=== PATIENT | male | born 1995 | race Two or more races ===

== ENCOUNTER 2017-07-13 03:21 | Emergency (ER) | payer SELFPAY ==
[~2017-07-13] VITALS: Ht 175.3 cm; Wt 86.0 kg
[2017-07-13] MEDS ORDERED: LIDOCAINE 1%, 20ML ONE (03:58)
[2017-07-13] MEDS ORDERED: LIDOCAINE 1%, 20ML SQ ONE (04:00)
[2017-07-13] MEDS ORDERED: DIPH,PERTUSS(ACELL),TET VAC/PF 0.5 ML IM-VACC ONE ×2 (04:37→05:00)
[2017-07-13 04:46] VITALS: BP 110/65
== END 2017-07-13 04:50 | disposition home or self-care (01) ==
LOC: ED 04:45
DX: S01.511A Laceration without foreign body of lip, initial encounter (principal); Z00.01 Encounter for general adult medical examination with abnormal findings; Y04.0XXA Assault by unarmed brawl or fight, initial encounter
CPT/HCPCS: 13131; 90471; 90715

== ENCOUNTER 2018-03-26 07:17 | Emergency (ER) | payer SELFPAY ==
[~2018-03-26] VITALS: Ht 175.3 cm; Wt 90.0 kg
[2018-03-26 07:26] VITALS: BP 119/76
[2018-03-26 08:15] LABS: BASOPHILS # (AUTO) 0.03 x10^3/uL (0-0.1); BASOPHILS % (AUTO) 1 % (0-1); EOSINOPHILS # (AUTO) 0.14 x10^3/uL (0-0.4); EOSINOPHILS % (AUTO) 2 % (1-7); LYMPHOCYTES # (AUTO) 2.23 x10^3/uL (1-3.4); LYMPHOCYTES % (AUTO) 38 % (22-44); MD NO; MEAN CORPUSCULAR HEMOGLOBIN 28.6 pg (27.5-34.5); MEAN CORPUSCULAR HGB CONC 33.6 g/dL (33.2-36.2); MEAN CORPUSCULAR VOLUME 85.4 fL (81-97); MONOCYTES # (AUTO) 0.52 x10^3/uL (0.2-0.8); MONOCYTES % (AUTO) 9 % (2-9); NEUTROPHILS # (AUTO) 2.99 x10^3/uL (1.8-6.8); NEUTROPHILS % (AUTO) 51 % (42-75); PLATELET COUNT 290 x10^3/uL (130-400); RED BLOOD COUNT 5.12 x10^6/uL (4.38-5.82); RED CELL DISTRIBUTION WIDTH 13.9 % (9.4-14.8)
[2018-03-26 08:27] LABS: ALANINE AMINOTRANSFERASE 37 U/L (12-78); ALBUMIN 3.4 g/dL (3.4-5.0); ANION GAP 5 mmol/L (5-15); CALCIUM 8.4 mg/dL (8.5-10.1); CHLORIDE 110 mmol/L (98-107); CREATININE 1.01 mg/dL (0.7-1.3)
[2018-03-26 08:29] LABS: ALKALINE PHOSPHATASE 84 U/L (45-117); BILIRUBIN,TOTAL 0.3 mg/dL (0.2-1.0); TOTAL PROTEIN 7.3 g/dL (6.4-8.2)
== END 2018-03-26 09:32 | disposition home or self-care (01) ==
LOC: ED 08:51
DX: R11.2 Nausea with vomiting, unspecified (principal)
CPT/HCPCS: 36415; 80053; 83690; 85025; 99284